=== PATIENT | male | born 1945 | race Caucasian/White ===

== ENCOUNTER 2022-03-23 11:21 | Observation (INO) ==
[2022-03-23] MEDS ORDERED: 0.9 % Sodium Chloride 1,000 ML ONE ×2 (11:34→11:35)
[2022-03-23] MEDS ORDERED: *HR* FentaNYL (PF) 100 MCG/2 ML VIAL ONE (11:34)
[2022-03-23] MEDS ORDERED: *HR* Midazolam HCl 2 MG/2 ML VIAL ONE (11:35)
[2022-03-23] MEDS ORDERED: *HR* Heparin 10,000 UNIT/10 ML VIAL ONE (11:35)
[2022-03-23] MEDS ORDERED: Nitroglycerin 1,000 MCG/5 ML VIAL IV ONE (11:35)
[2022-03-23] MEDS ORDERED: Heparin 1,000 UNITS/500 mL 500 ML ONE (11:35)
[2022-03-23] MEDS ORDERED: Iopamidol - 370 200 ML INFUS..BTL ONE (11:35)
[2022-03-23] MEDS ORDERED: Tirofiban 12.5 MG/250ML 12.5 MG/250 ML BAG ONE (13:00)
[2022-03-23] MEDS ORDERED: Tirofiban 12.5 MG/250ML 12.5 MG/250 ML BAG IVC SCH (13:45)
[2022-03-23] MEDS: Psyllium 1 PACKET POWD.PACK PO SCH ×2 (17:37→21:02)
[2022-03-24 07:27] LABS: Hematocrit 37.8 % (37.5-50.1); Hemoglobin 12.5 g/dL (12.9-16.9)
[2022-03-24 07:45] LABS: BUN/Creatinine Ratio 17 (6-26); Blood Urea Nitrogen 15 mg/dL (8-23)
[2022-03-24] MEDS: Psyllium 1 PACKET POWD.PACK PO SCH ×3 (08:51→16:31)
[2022-03-24] MEDS: carvediloL 6.25 MG TABLET PO SCH ×2 (11:54→16:25)
[2022-03-24] MEDS: Aspirin 81 MG TAB.CHEW PO SCH (11:54)
[2022-03-24 13:39] LABS: Basophils % 0.4 %; Eosinophils # 0.1 K/mcL (0.0-0.6); Hematocrit 39.1 % (37.5-50.1); Immature Granulocytes % 0.2 % (0-4); Lymphocytes % 19.6 %; Mean Corpuscular HGB Conc 33.2 g/dL (31.6-35.5); Mean Corpuscular Volume 93.1 fL (83.0-100.0); Mean Platelet Volume 9.3 fL (9.4-12.4); Monocytes # 0.2 K/mcL (0.0-1.3); Monocytes % 4.1 %; Neutrophils # 3.8 K/mcL (1.6-8.9); Platelet Count 216 K/mcL (140-400); Red Cell Distribution Width 12.5 % (11.5-14.5); Segmented Neutrophils % 74.7 %; White Blood Count 5.1 K/mcL (4.3-11.1)
[2022-03-24 14:00] LABS: Calcium 8.7 mg/dL (8.6-10.3); Potassium 4.1 mEq/L (3.5-5.1)
[2022-03-25] MEDS: Psyllium 1 PACKET POWD.PACK PO SCH ×3 (08:55→16:34)
[2022-03-25] MEDS: Aspirin 81 MG TAB.CHEW PO SCH (08:55)
[2022-03-25] MEDS: carvediloL 6.25 MG TABLET PO SCH ×2 (08:55→16:34)
[2022-03-25] MEDS: Spironolactone 12.5 MG TABLET PO SCH (10:39)
[2022-03-26 03:14] LABS: Basophils % 0.2 %; Eosinophils # 0.2 K/mcL (0.0-0.6); Eosinophils % 3.3 %; Hemoglobin 11.9 g/dL (12.9-16.9); Immature Granulocytes % 0.2 % (0-4); Lymphocytes # 1.6 K/mcL (0.6-4.6); Lymphocytes % 35.7 %; Mean Corpuscular HGB Conc 33.1 g/dL (31.6-35.5); Mean Corpuscular Hemoglobin 30.9 pg (28.0-33.3); Mean Corpuscular Volume 93.5 fL (83.0-100.0); Mean Platelet Volume 9.6 fL (9.4-12.4); Monocytes # 0.3 K/mcL (0.0-1.3); Monocytes % 5.9 %; Neutrophils # 2.5 K/mcL (1.6-8.9); Platelet Count 212 K/mcL (140-400); Red Blood Count 3.85 M/mcL (4.19-5.50); Red Cell Distribution Width 12.5 % (11.5-14.5); Segmented Neutrophils % 54.7 %; White Blood Count 4.6 K/mcL (4.3-11.1)
[2022-03-26 03:39] LABS: Calcium 8.6 mg/dL (8.6-10.3); Potassium 4.5 mEq/L (3.5-5.1)
[2022-03-26] MEDS: Spironolactone 12.5 MG TABLET PO SCH (08:18)
[2022-03-26] MEDS: Aspirin 81 MG TAB.CHEW PO SCH (08:18)
[2022-03-26] MEDS: Psyllium 1 PACKET POWD.PACK PO SCH ×3 (08:18→15:58)
[2022-03-26] MEDS: carvediloL 6.25 MG TABLET PO SCH ×2 (08:21→15:58)
[2022-03-26 20:07] VITALS: BP 146/84; PULSE 82; TEMP 98; O2SAT 98
== END 2022-03-26 23:59 | disposition other institution (70) ==
LOC: INVDIALAB 11:21 → 3BNU 11:21
PROVIDERS: ADMIT Internal Medicine Cardiovascular Disease; ATTEND Internal Medicine Cardiovascular Disease